=== PATIENT | female | born 1950 | race Caucasian/White ===

== ENCOUNTER 2019-06-25 11:11 | Emergency (ER) | payer MEDICARE ==
[2019-06-25] MEDS ORDERED: IPRATROPIUM/ALBUTEROL SULFATE 3 ML SOLUTION IH ONE (11:40)
[2019-06-25 11:48] LABS: BASOPHILS % (AUTO) 0.4 % (0.0-5.0); EOSINOPHILS % (AUTO) 3.1 % (0.0-8.0); HEMATOCRIT 36.4 % (36-48); LYMPHOCYTES % (AUTO) 27.7 % (21.0-51.0); MEAN CORPUSCULAR HEMOGLOBIN 31.4 pg (27.0-33.0); MEAN CORPUSCULAR HGB CONC 32.4 g/dL (32.0-36.0); MEAN CORPUSCULAR VOLUME 96.8 fL (79-99); MONOCYTES % (AUTO) 8.7 % (3.0-13.0); NEUTROPHILS % (AUTO) 59.9 % (40.0-77.0); PLATELET COUNT (AUTO) 361 K/uL (130-400); RED BLOOD CELL COUNT(AUTO) 3.76 MIL/uL (4.00-5.50); RED CELL DISTRIBUTION WIDTH 12.8 % (11.0-15.5); WHITE BLOOD COUNT (AUTO) 4.8 K/uL (4.8-10.8)
[2019-06-25 11:49] LABS: CREATININE 0.7 mg/dL (0.5-1.5); POTASSIUM 3.9 mmol/L (3.5-5.1)
[2019-06-25 11:54] LABS: ALBUMIN 3.4 g/dL (3.5-5.0); BILIRUBIN,DIRECT 0.1 mg/dL (0.0-0.3); BILIRUBIN,TOTAL 0.3 mg/dL (0.2-1.0); INR 0.95 (0.85-1.15); PARTIAL THROMBOPLASTIN TIME 23.8 SEC (26.3-35.5); TOTAL PROTEIN, SERUM 7.2 g/dL (6.0-8.3)
[2019-06-25 12:07] LABS: B-TYPE NATRIURETIC PEPTIDE 26 pg/mL (0-100)
[2019-06-25 12:08] LABS: ABG BASE EXCESS 2.3 mmol/L (-2.0-3.0); ABG HCO3 26.6 mmol/L (21.0-28.0); ABG OXYGEN SATURATION 95.8 % (95.0-99.0); ABG PCO2 40 mmHg (32-45)
== END 2019-06-25 14:36 | disposition home or self-care (01) ==
LOC: EDH 11:11
DX: J44.9 Chronic obstructive pulmonary disease, unspecified (principal); R06.00 Dyspnea, unspecified; I10 Essential (primary) hypertension; F32.9 Major depressive disorder, single episode, unspecified; Z87.891 Personal history of nicotine dependence
CPT/HCPCS: 36415; 36600; 71045; 80048; 80076; 82550; 82803; 83880; 84484; 85025; 85378; 85610; 85730; 93005; 94640

== ENCOUNTER 2024-07-30 12:25 | Emergency (ER) | payer MEDICARE ==
[~2024-07-30] VITALS: Ht 157.5 cm; Wt 42.6 kg
--- NOTE | 2024-07-30 13:18 | EKG ---
[facility] Test Date: 2024-07-30 Test Time: 13:15:31 Pat Name: EVELIO ANTHONY Department: ED Room: Gender: F Supervisor Fishing: [id number] [phone] [id number] Requested By: ANDREA JOHNSON Order Number: [id number] Reading MD: Yinka Elizalde Measurements Intervals [place] Rate: 99 P: 91 MI: 138 QRS: 78 QRSD: 77 T: 78 QT: 338 QTc: 433 Interpretive Statements Sinus rhythm NEVIN, consider biatrial enlargement Consider left ventricular hypertrophy Compared to ECG 06/25/2019 11:05:44 No significant changes Electronically Signed On 07-30-2024 16:05:39 ENVIRONMENTAL PROGRAMS MANAGER by Yinka Elizalde Please click the below link to view image of tracing.
[2024-07-30 13:33] LABS: BASOPHILS # (AUTO) 0.01 K/uL (0.00-0.20); BASOPHILS % (AUTO) 0.2 % (0.0-5.0); HEMATOCRIT 40.2 % (36-48); IMMATURE GRANULOCYTE ABSOLUTE 0.03 K/uL (0-1); LYMPHOCYTES # (AUTO) 0.5 K/uL (1.0-4.8); MEAN CORPUSCULAR HEMOGLOBIN 32.3 pg (27.0-33.0); MEAN CORPUSCULAR HGB CONC 32.8 g/dL (32.0-36.0); MEAN CORPUSCULAR VOLUME 98.3 fL (79-99); MONOCYTES # (AUTO) 0.3 K/uL (0.1-1.0); MONOCYTES % (AUTO) 4.6 % (3.0-13.0); NEUTROPHILS # (AUTO) 5.7 K/uL (1.8-7.7); NEUTROPHILS % (AUTO) 87.7 % (40.0-77.0); PLATELET COUNT (AUTO) 262 K/uL (130-400); RED BLOOD CELL COUNT(AUTO) 4.09 MIL/uL (4.00-5.50); RED CELL DISTRIBUTION WIDTH 13.7 % (11.0-15.5); WHITE BLOOD COUNT (AUTO) 6.5 K/uL (4.8-10.8)
[2024-07-30 13:44] LABS: CREATININE 0.7 mg/dL (0.5-1.0); POTASSIUM 3.2 mmol/L (3.5-5.1)
[2024-07-30 13:49] LABS: ALBUMIN 3.7 g/dL (3.5-5.0); BILIRUBIN,DIRECT 0.1 mg/dL (0.0-0.3); BILIRUBIN,TOTAL 0.2 mg/dL (0.2-1.0); TOTAL PROTEIN, SERUM 7.8 g/dL (6.0-8.3)
[2024-07-30 13:50] LABS: B-TYPE NATRIURETIC PEPTIDE 40 pg/mL (0-100)
--- NOTE | 2024-07-30 13:54 | ERN ---
ED Note History of Present Illness Stated Complaint: SOB Chief Complaint: Cough Time Seen by MD: 13:07 Dictation: 73-year-old female with a history of asthma presents to the ED for evaluation of shortness a breath onset two days ago. Patient reports cough and nasal congest ion, but denies any fever or any other associated symptoms at this time. Patient states has been experiencing symptoms for the past two months. Allergies: Coded Allergies: No Known Allergies (Unverified Allergy, Unknown, 07/30/24) Past Medical History Past Medical History: Asthma, Depression, Hypertension Surgical History: None Review of System Dictation Constitutional: Negative for fever,chills, and weight loss Eyes: Negative for injury, pain,redness, and discharge ENT: Positive for nasal congestion Negative for injury,pain or swelling Cardiovascular: Negative for chest pain, palpitations, and edema Respiratory: Positive for shortness of breath and cough for Abdomen/GI: Negative for abdominal pain, nausea, vomiting, diarrhea, and constipation Back: Negative for injury and pain : Negative for injury, bleeding and discharge MS/Extremity: Negative for injury and deformity Skin: Negative for rash, and discoloration Neuro: Negative for headache, weakness, numbness, tingling, and seizure Psych: Negative for suicide ideation, homicidal ideation, and hallucinations Initial Vital Sign VS Vital Signs Date Time Temp Pulse Resp B/P (MAP) Pulse Ox O2 Delivery O2 Flow Rate FiO2 07/30/24 12:42 99.5 108 18 139/81 92 Room Air 0 07/30/24 16:36 21 Physical Exam Dictation General: awake, alert, NAD Head/Face: Normocephalic, atraumatic Eyes: PERRL, EOMI, vision at baseline ENT: oral cavity clear, TMs clear, no signs of infection Neck: Trachea midline, supple, no nuchal rigidity Cardiovascular: RRR, normal S1/S2, No MRGs, no JVD Respiratory: no respiratory distress, mild wheezing Abdomen: Soft, non-tender, non-distended, normal bowel sounds, no guarding or rebound. Skin: Warm, dry, normal turgor, no rash MS/Extremity: Pulses equal, no cyanosis, neurovascular intact, FROM Neuro: COAx4, GCS 15, strength 5/5, CN 2-12 intact, normal cerebellar exam, normal gait, Psych: Normal behavior, mood, and affect normal Results (Laboratory/Radiology) Laboratory/Radiology Laboratory Tests Test 07/30/24 13:24 07/30/24 14:05 07/30/24 17:11 White Blood Count 6.5 K/uL (4.8-10.8) Red Blood Count 4.09 MIL/uL (4.00-5.50) Hemoglobin 13.2 g/dL (12.0-16.0) Hematocrit 40.2 % (36-48) Mean Corpuscular Volume 98.3 fL (79-99) Mean Corpuscular Hemoglobin 32.3 pg (27.0-33.0) Mean Corpuscular Hemoglobin Concent 32.8 g/dL (32.0-36.0) Red Cell Distribution Width 13.7 % (11.0-15.5) Platelet Count 262 K/uL (130-400) Mean Platelet Volume 9.5 fL (7.5-10.5) Immature Granulocyte % (Auto) 0.5 % (0-1) Neutrophils (%) (Auto) 87.7 % (40.0-77.0) H Lymphocytes (%) (Auto) 7.0 % (21.0-51.0) L Monocytes (%) (Auto) 4.6 % (3.0-13.0) Eosinophils (%) (Auto) 0.0 % (0.0-8.0) Basophils (%) (Auto) 0.2 % (0.0-5.0) Neutrophils # (Auto) 5.7 K/uL (1.8-7.7) Lymphocytes # (Auto) 0.5 K/uL (1.0-4.8) L Monocytes # (Auto) 0.3 K/uL (0.1-1.0) Eosinophils # (Auto) 0.00 K/uL (0.00-0.70) Basophils # (Auto) 0.01 K/uL (0.00-0.20) Absolute Immature Granulocyte (auto 0.03 K/uL (0-1) Nucleated Red Blood Cells 0.0 % (0.0-0.19) White Cell Morphology Comment See comments Sodium Level 136 mmol/L (136-145) Potassium Level 3.2 mmol/L (3.5-5.1) L Chloride Level 95 mmol/L (101-111) L Carbon Dioxide Level 34 mmol/L (21-32) H Blood Urea Nitrogen 11 mg/dL (7-18) Creatinine 0.7 mg/dL (0.5-1.0) Glomerular Filtration Rate Calc 90 mL/min (>90) Random Glucose 140 mg/dL (70-105) H Lactic Acid Level 1.8 mmol/L (0.8-2.5) Total Calcium 9.0 mg/dL (8.5-10.1) Total Bilirubin 0.2 mg/dL (0.2-1.0) Direct Bilirubin 0.1 mg/dL (0.0-0.3) Aspartate Amino Transf (AST/SGOT) 18 U/L (10-37) Alanine Aminotransferase (ALT/SGPT) 16 U/L (12-78) Alkaline Phosphatase 103 U/L (50-136) Total Creatine Kinase 97 U/L (21-232) # Troponin I High Sensitivity 17 ng/L (4-50) B-Type Natriuretic Peptide 40 pg/mL (0-100) Total Protein 7.8 g/dL (6.0-8.3) Albumin 3.7 g/dL (3.5-5.0) Influenza Type A Antigen Negative For Type A Influenza Type B Antigen Negative For Type B SARS-CoV-2 Antigen (Rapid) PRESUMPTIVE NEGATIVE Group A Streptococcus Rapid negative (NEGATIVE) Urine Color YELLOW (YELLOW) Urine Appearance CLOUDY (CLEAR) H Urine pH 6.0 (5.0-8.0) Urine Specific [place] 1.016 (1.001-1.031) Urine Protein 50 mg/dL (NEGATIVE) H Urine Glucose (UA) NEGATIVE mg/dL (NEGATIVE) Urine Ketones 5 mg/dL (NEGATIVE) H Urine Occult Blood LARGE (NEGATIVE) H Urine Nitrate NEGATIVE (NEGATIVE) Urine Bilirubin NEGATIVE mg/dL (NEGATIVE) Urine Urobilinogen 0.2 mg/dL (0.2-1.0) Urine Leukocyte Esterase 500 [place]/uL (NEGATIVE) H Urine RBC 26-50 /HPF (0-1) H Urine WBC 26-50 /HPF (0-1) H Urine Squamous Epithelial Cells MOD /HPF (0-2) Urine Transitional Epithelial Cells RARE /HPF (None Seen) Urine Bacteria RARE /HPF (None Seen) Labs Reviewed?: Yes EKG Comment: EKG 07/30/2024 time 1:15 p.m. ventricular rate 99, MS 138, QRS D 77, QT 338. Sinus rhythm, NEVIN, consider biatrial enlargement, consider left ventricular hypertrophy. No STEMI X-RAY Comment: REASON: cough ORDERING PHYSICIAN: ANDREA JOHNSON MD PROCEDURE: CXR1VW - CHEST 1VW CHEST 1VW HISTORY: Cough COMPARISON: None FINDINGS: A frontal projection of the chest was obtained. Mild bilateral pulmonary infiltrates are seen may be related to mild pulmonary vascular congestion with possible superimposed pneumonitis. The heart is borderline enlarged. Degenerative changes are seen. No evidence of aortic calcification is seen. IMPRESSION: 1. Mild bilateral pulmonary infiltrates are seen may be related to mild pulmonary vascular congestion with possible superimposed pneumonitis. DICTATED BY: JONAS LUA MD DATE: 07/30/24 1545 ED Course ED Course Orders Procedure Category Date Status Time 12 Lead Ekg Tracing- EKG 07/30/24 Resulted Technical 13:08 Basic Metabolic Panel LAB 07/30/24 Complete 13:08 Blood Cult MIGUEL 07/30/24 In Process 13:08 B-Type Natriuretic LAB 07/30/24 Complete Peptide 13:08 Cbc With Differential LAB 07/30/24 Complete 13:08 Hepatic Function Panel LAB 07/30/24 Complete 13:08 Creatine Kinase, Total LAB 07/30/24 Complete 13:08 Covid19 (Sars Antigen LAB 07/30/24 Complete Rapid) 13:08 Lactic Acid LAB 07/30/24 Complete 13:08 Troponin I High LAB 07/30/24 Complete Sensitivity 13:08 Urinalysis Profile LAB 07/30/24 Complete 13:08 Chest 1vw RAD 07/30/24 Resulted 13:08 Influenza Type A & B, LAB 07/30/24 Complete Rapid 13:08 Ipratropium/Albuterol PHA 07/30/24 Complete Neb (Duoneb) 13:30 Ceftriaxone 2gm Vial PHA 07/30/24 Complete (Rocephin 2gm Inj) 13:30 Methylprednisolone PHA 07/30/24 Complete Succ 125mg (Solu-Medr 13:30 0.9%Nacl 1000ml (Ns PHA 07/30/24 Complete 1000ml) 13:30 Rapid (Group A Strep) LAB 07/30/24 Complete 14:33 Culture Urine MIGUEL 07/30/24 Logged 17:49 Current Medications Medications (Trade) Dose Ordered Sig/Humza Route PRN Reason Start Time Stop Time Status Last Admin Dose Admin Albuterol (DUOneb) 1 udvial ONCE ONCE IH 07/30/24 13:30 07/30/24 13:31 DC 07/30/24 13:56 Ceftriaxone Sodium (Rocephin 2gm Inj) 2 gm ONCE ONCE IVPB 07/30/24 13:30 07/30/24 13:31 DC 07/30/24 16:10 Methylprednisolone Sodium Succinate (Solu-medROL 125MG) 125 mg ONCE ONCE IVP 07/30/24 13:30 07/30/24 13:31 DC 07/30/24 16:10 Sodium Chloride 1,000 ml @ 0 mls/hr ONCE ONCE IV 07/30/24 13:30 07/30/24 13:31 DC 07/30/24 16:09 Vital Signs Date Time Temp Pulse Resp B/P (MAP) Pulse Ox O2 Delivery O2 Flow Rate FiO2 07/30/24 16:36 98.6 96 17 148/71 94 Room Air* 0 21 07/30/24 13:57 100 20 07/30/24 12:42 99.5 108 18 139/81 92 Room Air 0 Medical Decision Making MDM MDM: Differential diagnosis: Shortness of breath, dehydration, bronchitis Patient does not want to be admitted and will be leaving AMA. Rationale: Tests considered and ordered secondary to shared decision making include: labs, ECG and radiology Risk of complication and/or morbidity or mortality of patient management: None Medications-Per medication reconciliation Need for hospitalization: Patient does meet criteria for hospitalization. Need for emergency major/minor surgery: No There are no social concerns with this patient. Medical management and examination interpretation discussions were had by me with other qualified healthcare professionals as indicated for the patient's care. DX & DISP Disposition: AMA Departure Impression: Primary Impression: Shortness of breath Additional Impressions: Acute bronchitis, Dehydration Condition: Against Medical Advice Referrals: SELF,REFERRAL (PCP) I have reviewed, & agreed with my scribe's, documentation. (I, Stephani Beasley am scribing for Dr. Johnson) I personally scribed for ANDREA JOHNSON MD ([email or web address]) on 07/30/24 at 13:54. Electronically submitted by Stephani Beasley ([email or web address]). ANDREA JOHNSON MD Jul 30, 2024 13:54
[2024-07-30] MEDS: IpraTROPium/alBUTERol SULFATE 3 ML SOLUTION IH ONE (13:56)
[2024-07-30 13:57] VITALS: PULSE 100; RESP 20
[2024-07-30 14:45] LABS: COVID19 (SARS ANTIGEN RAPID) PRESUMPTIVE NEGATIVE (NEGATIVE)
[2024-07-30 15:07] LABS: INFLUENZA TYPE A Negative For Type A (NEGATIVE); INFLUENZA TYPE B Negative For Type B (NEGATIVE)
--- NOTE | 2024-07-30 15:48 | HMCIMG ---
CHEST 1VW HISTORY: Cough COMPARISON: None FINDINGS: A frontal projection of the chest was obtained. Mild bilateral pulmonary infiltrates are seen may be related to mild pulmonary vascular congestion with possible superimposed pneumonitis. The heart is borderline enlarged. Degenerative changes are seen. No evidence of aortic calcification is seen. IMPRESSION: 1. Mild bilateral pulmonary infiltrates are seen may be related to mild pulmonary vascular congestion with possible superimposed pneumonitis.
[2024-07-30] MEDS: 0.9%NACL 1000ML 1,000 ML IV ONE (16:09)
[2024-07-30] MEDS: Solu-medROL 125MG VIAL IVP ONE (16:10)
[2024-07-30] MEDS: CEFTRIAXONE 2GM VIAL IVPB ONE (16:10)
[2024-07-30 16:36] VITALS: BP 148/71; PULSE 96; RESP 17; TEMP 98.6; O2SAT 94
[2024-07-30 17:46] LABS: APPEARANCE,URINE CLOUDY (CLEAR); BILIRUBIN,URINE NEGATIVE (NEGATIVE); COLOR,URINE YELLOW (YELLOW); GLUCOSE, URINE (UA) NEGATIVE (NEGATIVE); KETONES,URINE 5 mg/dL (NEGATIVE); LEUKOCYTE ESTERASE ,URINE 500 Leu/uL (NEGATIVE); NITRATE,URINE NEGATIVE (NEGATIVE); OCCULT BLOOD,URINE LARGE (NEGATIVE); PROTEIN,URINE 50 mg/dL (NEGATIVE); UROBILINOGEN,URINE 0.2 mg/dL (0.2-1.0)
[2024-07-30 17:49] LABS: ADD UA MICROSCOPIC YES
[2024-07-30 17:50] LABS: BACTERIA,URINE RARE /HPF (None Seen); MUCUS,URINE FEW LPF (None Seen); RBC,URINE 26-50 /HPF (0-1); SQUAMOUS EPITHELIAL CELL,UR MOD /HPF (0-2); TRANSITIONAL EPI CELLS,URINE RARE /HPF (None Seen); WBC,URINE 26-50 /HPF (0-1)
--- NOTE | 2024-07-30 18:17 | NUR ---
discussed the importance of having patient stay and explained to however patient and refused to stay
== END 2024-07-30 18:18 | disposition left against medical advice (07) ==
LOC: EDH 12:25
DX: R06.02 Shortness of breath (principal); J20.9 Acute bronchitis, unspecified; E86.0 Dehydration; I10 Essential (primary) hypertension; J45.909 Unspecified asthma, uncomplicated; F32.A Depression, unspecified; Z20.822 Contact with and (suspected) exposure to COVID-19
CPT/HCPCS: 99285; 82550; 80076; 84484; 80048; 83880; 85025; 87040 ×2; 87086; 87880; 87804 ×2; 83605; 87426; 81001; 36415; 71045; 96365; 96375; 93005; 94640; J2919; J0696